=== PATIENT | male | born 1985 | race African-American/Black ===

== ENCOUNTER 2020-03-22 13:09 | Emergency (ER) | payer OTHER ==
--- NOTE | 2020-03-22 13:56 | ER Document Report ---
ED Medical Screen (RME) - General Chief Complaint: Groin Pain Stated Complaint: GROIN PAIN Time Seen by Provider: 03/22/20 13:49 - HPI Notes: 03/22/20 13:55 34-year-old male presents to the emergency room today for right testicular pain that started approximately 4 days, getting progressively worse with time. Reports he did have some red urine he noticed today when he woke up to void. Denies any discharge from his penis. Denies any new sexual partners, denies any history of STIs. Denies any fevers or chills. Denies any abdominal pain, nausea vomiting diarrhea. Due to being in triage, unable to do a full exam due to lack of privacy and in bed, patient will be assessed in the main ED. I have greeted and performed a rapid initial assessment of this patient. A comprehensive ED assessment and evaluation of the patient, analysis of test results and completion of the medical decision making process will be conducted by additional ED providers. PHYSICAL EXAMINATION: GENERAL: Well-appearing, well-nourished and in no acute distress. CV: s1, s2 regular LUNGS: No respiratory distress abd: no abd tenderness, no cva tenderness bilaterally The patient was evaluated during a global COVID-19 pandemic and that diagnosis was suspected/considered upon their initial presentation. Their evaluation, treatment and testing was consistent with current guidelines for patients who present with complaints or symptoms and may be related to COVID-19. - Related Data Allergies/Adverse Reactions: No Known Allergies Allergy (Verified 03/22/20 13:47) Physical Exam - Vital signs Vitals: Temp Pulse Resp BP Pulse Ox 98.8 F 86 20 128/79 H 100 03/22/20 13:14 03/22/20 13:14 03/22/20 13:14 03/22/20 13:14 03/22/20 13:14 Course - Vital Signs Vital signs: Temp Pulse Resp BP Pulse Ox 98.8 F 86 20 128/79 H 100 03/22/20 13:14 03/22/20 13:14 03/22/20 13:14 03/22/20 13:14 03/22/20 13:14
[2020-03-22 14:58] LABS: APPEARANCE,URINE CLEAR; BILIRUBIN,URINE NEGATIVE (NEGATIVE); COLOR,URINE YELLOW; GLUCOSE, URINE NEGATIVE (NEGATIVE); KETONES,URINE NEGATIVE (NEGATIVE); LEUKOCYTE ESTERASE,URINE NEGATIVE (NEGATIVE); NITRITE,URINE NEGATIVE (NEGATIVE); PROTEIN,URINE NEGATIVE (NEGATIVE); URINE SPECIFIC GRAVITY 1.024
[2020-03-22] MEDS ORDERED: OXYCODONE HCL IR 5 MG TABLET PO ONE (16:09)
[2020-03-22] MEDS ORDERED: IBUPROFEN 600 MG TABLET PO ONE (16:09)
--- NOTE | 2020-03-22 16:16 | ER Document Report ---
ED GI/ - General Chief Complaint: Testicular Pain Stated Complaint: GROIN PAIN Time Seen by Provider: 03/22/20 13:49 Primary Care Provider: ARLET QUEZADA [Primary Care Provider] - Follow up in 1 week Notes: Patient is a 34-year-old male who comes emergency department for chief complaint of right testicular pain. This started almost 4 days ago now, he states this is slowly progressively gotten worse with time. He states that he has not had any painful urination, discharge, although he did see possible slight reddish coloration in his urine earlier today. He has urinated since that time without any abnormality. He denies recent sexual activity (last time was over 2 months ago, denies risky sexual activity or unprotected sex). He denies injury to the area. He denies abdominal pain, flank pain, vomiting, fever/chills, rash. He denies any daily medications or diagnosed medical history. - Related Data Allergies/Adverse Reactions: No Known Allergies Allergy (Verified 03/22/20 13:47) Past Medical History - General Information source: Patient - Social History Smoking Status: Never Smoker Chew tobacco use (# tins/day): No Frequency of alcohol use: None Drug Abuse: None Lives with: Family Family History: Reviewed & Not Pertinent Surgical Hx: Negative - Immunizations Immunizations up to date: Yes Hx Diphtheria, Pertussis, Tetanus Vaccination: Yes Review of Systems - Review of Systems Constitutional: No symptoms reported EENT: No symptoms reported Cardiovascular: No symptoms reported Respiratory: No symptoms reported Gastrointestinal: No symptoms reported Genitourinary: See HPI Male Genitourinary: See HPI Musculoskeletal: No symptoms reported Skin: No symptoms reported Hematologic/Lymphatic: No symptoms reported Neurological/Psychological: No symptoms reported Physical Exam - Vital signs Vitals: Temp Pulse Resp BP Pulse Ox 98.8 F 86 20 128/79 H 100 03/22/20 13:14 03/22/20 13:14 03/22/20 13:14 03/22/20 13:14 03/22/20 13:14 - Notes Notes: GENERAL: Alert, interacts well. No acute distress. Patient moves with pain and ambulates with pain HEAD: Normocephalic, atraumatic. EYES: Pupils equal, round, and reactive to light. Extraocular movements intact. ENT: Oral mucosa moist, tongue midline. Oropharynx unremarkable. Airway patent. NECK: Full range of motion. Supple. Trachea midline. No lymphadenopathy. LUNGS: Clear to auscultation bilaterally, no wheezes, rales, or rhonchi. No respiratory distress. Non-tender chest wall. HEART: Regular rate and rhythm. No murmur ABDOMEN: Soft, non-tender. Non-distended. GENITOURINARY: There is swelling and tenderness along the right testicle although there is no erythema, fluctuance, induration, or signs of infection. Very tender over the epididymis as well. The area is firm overall. Left testicle unremarkable. Cremaster reflex normal, no rash or concerning findings otherwise. Exam performed with Vita WATSONN at bedside. EXTREMITIES: Moves all 4 extremities spontaneously. No edema, normal radial and dorsalis pedis pulses bilaterally. No cyanosis. BACK: no cervical, thoracic, lumbar midline tenderness. No saddle anesthesia, normal distal neurovascular exam. Moves all extremities in full range of motion. NEUROLOGICAL: Alert and oriented x3. Normal speech. Cranial nerves II through XII grossly intact. Strength 5/5 in all extremities. PSYCH: Normal affect, normal mood. SKIN: Warm, dry, normal turgor. No rashes or lesions noted. Course - Re-evaluation Re-evalutation: Exam is suggestive of orchitis, work-up pending. Urinalysis nonspecific, gonorrhea and Chlamydia negative, ultrasound does not show torsion. Ultrasound shows right microlithiasis and epididymitis. I discussed in detail with patient. Provided with copy of his ultrasound. Discussed with Dr. Ku. Patient will be treated for epididymitis/orchitis with Bactrim after discussing options with patient, discussed expectations, follow-up, return precautions. Patient states appreciation and agreement. - Vital Signs Vital signs: Temp Pulse Resp BP Pulse Ox 98.8 F 77 14 141/87 H 99 03/22/20 17:29 03/22/20 17:29 03/22/20 17:29 03/22/20 17:29 03/22/20 17:29 - Laboratory Results Laboratory Results Interpreted: 03/22/20 14:20 Urine Urobilinogen 4.0 H Critical Laboratory Results Reviewed: No Critical Results - Radiology Results Critical Radiology Results Reviewed: No Critical Results Discharge - Discharge Clinical Impression: Right testicular pain, Epididymitis Condition: Stable Disposition: HOME, SELF-CARE Instructions: Oral Narcotic Medication ([facility]) Additional Instructions: You have epididymitis, inflammation/infection of the epididymis as we discussed, this is causing your pain. You also have microlithiasis or calcium deposits in the testicle, you do need to follow-up with primary care to have this monitored, this can possibly increase your risk of testicular cancer in the future. Take the antibiotics with completion, take the Motrin as prescribed, wear supportive underwear, and rest. Symptoms should simply go away with time. Return if you worsen including severe worsening swelling or pain, redness, fever, vomiting, or any other concerning symptoms. Prescriptions: Sulfamethoxazole/Trimethoprim [Bactrim Ds Tablet] 1 each PO BID #20 tablet Ibuprofen [Motrin 800 mg Tablet] 800 mg PO TID PRN #30 tablet PRN Reason: Forms: Return to Work Referrals: [facility] [Primary [facility] Provider] - Follow up in 1 week
[2020-03-22 16:20] LABS: CHLAM PCR NOT DETECTED (NOT DETECT)
--- NOTE | 2020-03-22 16:30 | RADIOLOGY REPORT (SQ) ---
EXAM DESCRIPTION: U/S SCROTUM W/DOPPLER IMAGES COMPLETED DATE/TIME: 03/22/2020 4:14 pm REASON FOR STUDY: R testicular pain x 4 days COMPARISON: None. TECHNIQUE: Static and realtime herrera scale imaging of the scrotum and testes. Selected color Doppler and spectral images recorded to document blood flow. LIMITATIONS: None. FINDINGS: RIGHT: TESTICLE: Normal size, 4 x 2.5 x 2.7 cm. Diffuse microlithiasis. Normal blood flow. No mass. EPIDIDYMIS: Enlarged, 2.6 x 1.8 x 1.5 cm. Hyperemia. HYDROCELE OR VARICOCELE: Small septated hydrocele. HERNIA OR EXTRA-TESTICULAR MASS: No. OTHER: No other significant finding. LEFT: TESTICLE: Normal size, 4.1 x 2.5 x 2.8 cm. Diffuse microlithiasis. Normal blood flow. No mass. EPIDIDYMIS: Normal. HYDROCELE OR VARICOCELE: No. HERNIA OR EXTRA-TESTICULAR MASS: No. OTHER: No other significant finding. IMPRESSION: 1. Right epididymitis. 2. Diffuse testicular microlithiasis. Nonspecific finding. 3. Blood flow was present bilaterally. TECHNICAL DOCUMENTATION: JOB ID: [id number] 2010 [employer]- All Rights Reserved Reading location - IP/workstation name: [email or web address]
[2020-03-22] MEDS ORDERED: SULFAMETHOXAZOLE/TRIMETHOPRIM 800-160 MG TABLET PO ONE (17:16)
[2020-03-22] MEDS ORDERED: HYDROCODONE/ACETAMINOPHEN 5-325 MG (6 TAB/ER DISP) PO PRN (17:16)
[2020-03-22 17:33] VITALS: BP 141/87
== END 2020-03-22 17:33 | disposition home or self-care (01) ==
LOC: EDSEX → ER 13:09
DX: N45.1 Epididymitis (principal); N50.811 Right testicular pain
CPT/HCPCS: 76870; 81001; 87491; 87591; 93976; 99284